=== PATIENT | female | born 1995 | race Caucasian/White ===

== ENCOUNTER 2017-04-12 09:31 | Emergency (ER) | payer MEDICAID ==
[2017-04-12 09:31] VITALS: BMI 29.2
[2017-04-12 09:36] VITALS: BP 135/76; PULSE 91; TEMP 98.9; O2SAT 100
[2017-04-12] MEDS ORDERED: Alum-Mag Hydrox-Simethicone Susp (30 mL) ONE (10:01)
[2017-04-12] MEDS ORDERED: Alum-Mag Hydrox-Simethicone Susp (30 mL) PO ONE (10:02)
[2017-04-12 10:04] VITALS: RESP 19
[2017-04-12 10:34] LABS: BASO # 0.1 K/uL (0.0-0.2); BASO % 0.8 % (0.0-2.0); EOS # 0.2 K/uL (0.0-0.7); EOS % 2.6 % (0.0-4.0); HEMOGLOBIN 12.5 g/dL (12.0-16.0); LYMPH # 2.4 K/uL (1.0-4.3); LYMPH % 38.4 % (20.0-40.0); MEAN CORPUSCULAR HGB CONC 33.4 g/dL (33.0-37.0); MEAN PLATELET VOLUME 9.4 fl (7.2-11.7); MONO # 0.5 K/uL (0.0-0.8); MONO % 7.6 % (0.0-10.0); NEUT # 3.2 K/uL (1.8-7.0); NEUT % 50.6 % (50.0-75.0); NRBC % 0.1 % (0.0-0.0); RBC 4.63 Mil/uL (3.80-5.20); RED CELL DISTRIBUTION WIDTH 13.9 % (11.5-14.5); WHITE BLOOD COUNT 6.4 K/uL (4.8-10.8)
[2017-04-12 10:42] LABS: SQUAMOUS EPITHIAL 3 /hpf (0-5); URINE BILIRUBIN NEGATIVE (NEGATIVE); URINE BLOOD LARGE (NEGATIVE); URINE CLARITY SLIGHTY-CLOUDY (Clear); URINE COLOR YELLOW (YELLOW); URINE GLUCOSE (UA) NEG (Normal); URINE LEUKOCYTE ESTERASE NEG Leu/uL (Negative); URINE NITRATE NEGATIVE (NEGATIVE); URINE PROTEIN NEGATIVE (NEGATIVE); URINE UROBILINOGEN 0.2-1.0 mg/dL (0.2-1.0)
--- NOTE | 2017-04-12 10:49 | ED PDOC ---
HPI: Abdomen Time Seen by Provider: 04/12/17 09:50 Chief Complaint (Nursing): Abdominal Pain Chief Complaint (Provider): abdominal pain History Per: Patient History/Exam Limitations: no limitations Onset/Duration Of Symptoms: Days (2 wks), Intermittent Episodes, Gradual Outside of [place] travel?: No Current Symptoms Are (Timing): Intermittent Episodes Context: Food Severity: Mild Location Of Pain/Discomfort: Epigastric, Periumbilical Quality Of Discomfort: Aching, Cramping Associated Symptoms: Constipation. denies: Nausea, Vomiting, Diarrhea, Loss Of Appetite, Back Pain, Urinary Symptoms Exacerbating Factors: None Alleviating Factors: None Last Bowel Movement: Days Ago (2) Additional Complaint(s): 21yo female c/o intermittent central abdominal pain ongoing for about 2 weeks. Symptoms associated with mild constipation and change in bowel habits. Denies melena, bloody stools, fever, vomiting or weight loss. LMP ended about a week ago. Past Medical History Reviewed: Historical Data, Nursing Documentation, Vital Signs Vital Signs: Last Vital Signs Temp 98.9 F 04/12/17 09:53 Pulse 91 H 04/12/17 09:53 Resp 19 04/12/17 09:53 BP 135/76 04/12/17 09:53 Pulse Ox 100 04/12/17 12:42 - Medical History PMH: Anemia, Bronchitis, Pneumonia Denies: HIV, Chronic Kidney Disease - Family History Family History: States: Unknown Family Hx - Living Arrangements Living Arrangements: With Family - Social History Current smoker - smoking cessation education provided: No - Home Medications Home Medications: Ambulatory Orders Medication Instructions Recorded Docusate Sodium [Dulcolax Stool 100 mg PO BID PRN #20 capsule 04/12/17 Softener] Ranitidine HCl [Zantac] 150 mg PO BID #20 tablet 04/12/17 - Allergies Allergies/Adverse Reactions: Allergies Allergy/AdvReac Type Severity Reaction Status Date / Time No Known Allergies Allergy Verified 05/27/15 19:29 Review of Systems ROS Statement: Except As Marked, All Systems Reviewed And Found Negative Constitutional: Negative for: Fever, Chills Cardiovascular: Negative for: Chest Pain, Palpitations Respiratory: Negative for: Cough, Shortness of Breath Gastrointestinal: Positive for: Abdominal Pain, Constipation. Negative for: Nausea, Vomiting, Diarrhea, Melena, Hematochezia, Hematemesis, Rectal Pain Genitourinary Female: Negative for: Dysuria, Frequency Musculoskeletal: Negative for: Neck Pain, Back Pain, Leg Pain Skin: Negative for: Rash, Lesions, Jaundice Neurological: Negative for: Weakness, Numbness, Headache, Dizziness Psych: Negative for: Anxiety, Depression Physical Exam - Physical Exam Appears: Positive for: Well, Non-toxic, No Acute Distress Skin: Positive for: Normal Color, Warm, DRY Eye Exam: Positive for: EOMI, Normal appearance, PERRL ENT: Positive for: Normal ENT Inspection Neck: Positive for: Normal, Painless ROM Cardiovascular/Chest: Positive for: Regular Rate, Rhythm Respiratory: Positive for: CNT, Normal Breath Sounds Gastrointestinal/Abdominal: Positive for: Bowel Sounds, Soft, Tenderness ( minimal central abd tenderness). Negative for: Guarding, Rebound Back: Positive for: Normal Inspection Extremity: Positive for: Normal ROM Neurologic/Psych: Positive for: Alert, Oriented - Laboratory Results Result Diagrams: 04/12/17 10:28 04/12/17 10:28 Urine POC: Negative Urine dip results: Positive for: Blood - ECG O2 Sat by Pulse Oximetry: 100 Pulse Ox Interpretation: Normal Medical Decision Making Medical Decision Making: workup initiated for central abd pain Upreg negative Labs ordered, maalox and bentyl ordered US abdomen ordered Reevaluation 1237 Patient is feeling better in ER, abdomen is soft and non tender and patient would like to go home. Patient will be discharged home with a trial of cathartic and instructions to follow up with gastroenterology. Blood work also reviewed and found remarkable. Scribe Attestation Documented by Preethi Rodríguez acting as a scribe for Pavan Boyer MD. Provider Attestation All medical record entries made by the Scribe were at my direction and personally dictated by me. I have reviewed the chart and agree that the record accurately reflects my personal performance of the history, physical exam, medical decision making, and the department course for this patient. I have also personally directed, reviewed, and agree with the discharge instructions and disposition. Disposition - Clinical Impression Clinical Impression: Abdominal pain - Patient ED Disposition Is Patient to be Admitted: No Counseled Patient/Family Regarding: Studies Performed, Diagnosis, Need For Followup, Rx Given - Disposition Referrals: Cooper Carr MD [Staff Provider] - Disposition: Routine/Home Disposition Time: 12:35 Condition: STABLE Additional Instructions: See GI specialist in next 5-10 days for further testing. Return to ER for any worse or new symptoms. Prescriptions: Docusate Sodium [Dulcolax Stool Softener] 100 mg PO BID PRN #20 capsule PRN Reason: Constipation Ranitidine HCl [Zantac] 150 mg PO BID #20 tablet Instructions: Abdominal Pain (ED) Forms: [employer] (Kenyan)
[2017-04-12 10:51] LABS: ALB/GLOB RATIO 1.6 (1.0-2.1); ALBUMIN 4.8 g/dL (3.5-5.0); ALT/SGPT 28 U/L (9-52); AST/SGOT 29 U/L (14-36); BLOOD UREA NITROGEN 11 mg/dl (7-17); CALCIUM 9.6 mg/dL (8.4-10.2); GFR AFRICAN-AMERICAN > 60; GFR NON-AFRICAN AMERICAN > 60; LIPASE 26 U/L (23-300)
--- NOTE | 2017-04-12 11:10 | US ---
HISTORY: Mid abdominal pain COMPARISON: None. TECHNIQUE: Grayscale imaging was performed. FINDINGS: LIVER: Measures 14.9 cm. Normal echogenicity of the liver parenchyma. No mass. No intrahepatic bile duct dilatation. GALLBLADDER: Unremarkable. No gallstones. COMMON BILE DUCT: Measures 4.2 mm. No stones. No dilatation. PANCREAS: Unremarkable as visualized. No mass. No ductal dilatation. RIGHT KIDNEY: Measures 10.2cm. Normal echogenicity. No calculus, mass, or hydronephrosis. LEFT KIDNEY: Measures 12.3cm. Normal echogenicity. No calculus, mass, or hydronephrosis. SPLEEN: Normal in size and contour. No mass. AORTA: No aneurysmal dilatation. IVC: Unremarkable. OTHER FINDINGS: None. IMPRESSION: Normal examination.
== END 2017-04-12 12:49 | disposition home or self-care (01) ==
LOC: H.ER 09:31
DX: K59.00 Constipation, unspecified (principal)

== ENCOUNTER 2017-11-12 09:27 | Emergency (ER) | payer MEDICAID ==
[2017-11-12 09:30] VITALS: BMI 28.3
[2017-11-12 09:32] VITALS: TEMP 98.2
--- NOTE | 2017-11-12 09:46 | ED PDOC ---
HPI: General Adult Time Seen by Provider: 11/12/17 09:36 Chief Complaint (Nursing): Cough, Cold, Congestion Chief Complaint (Provider): Nasal Congestion History Per: Patient History/Exam Limitations: no limitations Onset/Duration Of Symptoms: Days (2) Current Symptoms Are (Timing): Still Present Additional Complaint(s): Pt. with nasal congestion, body aches, sore throat. No weakness, dyspnea, headaches, dizziness. No leg pain, abd pain, dysuria. No back pain. Tolerates po. No dizziness. Ambulated with no issues. Fever yesterday, not today. Took aleeve at night. Past Medical History Reviewed: Nursing Documentation, Vital Signs Vital Signs: Last Vital Signs Temp 98.2 F 11/12/17 09:30 Pulse 83 11/12/17 09:30 Resp 20 11/12/17 09:30 BP 127/88 11/12/17 09:30 Pulse Ox 99 11/12/17 09:30 - Medical History PMH: Bronchitis Denies: HIV, Chronic Kidney Disease - Surgical History Surgical History: No Surg Hx - Family History Family History: States: Unknown Family Hx - Living Arrangements Living Arrangements: With Family - Social History Current smoker - smoking cessation education provided: No Alcohol: None Drugs: Denies - Home Medications Home Medications: Ambulatory Orders Medication Instructions Recorded Docusate Sodium [Dulcolax Stool 100 mg PO BID PRN #20 capsule 04/12/17 Softener] Ranitidine HCl [Zantac] 150 mg PO BID #20 tablet 04/12/17 Ibuprofen [Motrin] 600 mg PO TID 7 Days tab 11/12/17 - Allergies Allergies/Adverse Reactions: Allergies Allergy/AdvReac Type Severity Reaction Status Date / Time No Known Allergies Allergy Verified 05/27/15 19:29 Review of Systems Constitutional: Positive for: Fever. Negative for: Weakness Eyes: Negative for: Vision Change ENT: Positive for: Nose Pain, Nose Discharge, Nose Congestion, Throat Pain. Negative for: Mouth Pain Cardiovascular: Negative for: Chest Pain Respiratory: Negative for: Cough, Shortness of Breath, Sputum Gastrointestinal: Negative for: Vomiting, Abdominal Pain, Diarrhea Genitourinary Female: Negative for: Dysuria Musculoskeletal: Negative for: Neck Pain, Shoulder Pain, Arm Pain Skin: Negative for: Rash Neurological: Negative for: Weakness Physical Exam - Reviewed Nursing Documentation Reviewed: Yes Vital Signs Reviewed: Yes - Physical Exam Appears: Positive for: Well, Non-toxic, No Acute Distress Head Exam: Positive for: ATRAUMATIC, NORMAL INSPECTION, NORMOCEPHALIC Eye Exam: Positive for: EOMI, Normal appearance, PERRL ENT: Positive for: Nasal Congestion Neck: Positive for: Normal, Painless ROM, Supple Cardiovascular/Chest: Positive for: Regular Rate, Rhythm Respiratory: Positive for: CNT, Normal Breath Sounds Gastrointestinal/Abdominal: Positive for: Normal Exam, Bowel Sounds, Soft. Negative for: Tenderness Back: Positive for: Normal Inspection. Negative for: L CVA Tenderness, R CVA Tenderness Extremity: Positive for: Normal ROM. Negative for: Tenderness Neurologic/Psych: Positive for: Alert, Oriented - ECG O2 Sat by Pulse Oximetry: 99 Pulse Ox Interpretation: Normal - Progress ED Course And Treament: 947: Stable. AAOx3. Pain free. Tolerated po . Fu with pcp. Disposition - Clinical Impression Clinical Impression: URI (upper respiratory infection) Counseled Patient/Family Regarding: Diagnosis, Need For Followup, Rx Given - Disposition Referrals: [facility] [Outside] - 11/13/17 Disposition: Routine/Home Disposition Time: 09:48 Condition: STABLE Additional Instructions: Return if not better in 3 days. Prescriptions: Ibuprofen [Motrin] 600 mg PO TID 7 Days tab Forms: [employer] (Upper Sorbian), [facility] ED School/Work Excuse
[2017-11-12 10:25] VITALS: BP 128/70; PULSE 78; RESP 16; O2SAT 98
== END 2017-11-12 10:25 | disposition home or self-care (01) ==
LOC: H.ER 09:27
DX: J06.9 Acute upper respiratory infection, unspecified (principal)

== ENCOUNTER 2018-01-12 23:08 | Emergency (ER) | payer MEDICAID ==
[2018-01-12 23:09] VITALS: BMI 28.3
[2018-01-12 23:20] VITALS: RESP 18; TEMP 98.5
[2018-01-13] MEDS ORDERED: Sodium Chloride 0.9% 1,000 ML IV SCH (01:30)
[2018-01-13 02:10] LABS: BASO # 0.1 K/uL (0.0-0.2); BASO % 0.7 % (0.0-2.0); EOS % 0.6 % (0.0-4.0); HEMOGLOBIN 12.2 g/dL (12.0-16.0); LYMPH # 2.2 K/uL (1.0-4.3); LYMPH % 30.6 % (20.0-40.0); MEAN CELL VOLUME 81.6 fl (81.0-99.0); MEAN CORPUSCULAR HEMOGLOBIN 26.2 pg (27.0-31.0); MEAN CORPUSCULAR HGB CONC 32.1 g/dL (33.0-37.0); MEAN PLATELET VOLUME 9.7 fl (7.2-11.7); MONO # 0.5 K/uL (0.0-0.8); MONO % 6.5 % (0.0-10.0); NEUT # 4.5 K/uL (1.8-7.0); NEUT % 61.6 % (50.0-75.0); NRBC % 0.2 % (0.0-0.0); RBC 4.67 Mil/uL (3.80-5.20); RED CELL DISTRIBUTION WIDTH 13.8 % (11.5-14.5); WHITE BLOOD COUNT 7.3 K/uL (4.8-10.8)
[2018-01-13 02:17] LABS: ALB/GLOB RATIO 1.1 (1.0-2.1); ALBUMIN 4.5 g/dL (3.5-5.0); ALT/SGPT 25 U/L (9-52); AST/SGOT 26 U/L (14-36); BLOOD UREA NITROGEN 6 mg/dl (7-17); CALCIUM 11.5 mg/dL (8.4-10.2); GFR AFRICAN-AMERICAN > 60; GFR NON-AFRICAN AMERICAN > 60
--- NOTE | 2018-01-13 02:59 | ED PDOC ---
History of Present Illness History of Present Illness: 22 year old female presents to ED with complaints of cough x3 days. (+) nausea, vomiting, and dizziness. Otherwise: (-) fever, (-) chest pain, (-) headache, ( -) SOB, (-) abdominal pain, (-) decreased oral intake, (-) decreased urine output, (-) rash, (-) urinary symptoms, (-) travel. Of note, patient states that she has had pneumonia in the past. PCP: [facility] HPI: Influenza Time Seen by Provider: 01/13/18 00:32 Chief Complaint: Cough, Cold, Congestion Chief Complaint (Provider): Cough History Per: Patient Exam Limitations: no limitations Onset/Duration Of Symptoms: Days (x3) Symptoms include: vomiting. denies: fever Past Medical History Reviewed: Historical Data, Nursing Documentation, Vital Signs Vital Signs: Last Vital Signs Temp 98.5 F 01/12/18 23:18 Pulse 81 01/12/18 23:18 Resp 18 01/12/18 23:18 BP 143/86 01/12/18 23:18 Pulse Ox 99 01/12/18 23:18 - Medical History PMH: Anemia, Bronchitis, Pneumonia Denies: HIV, Chronic Kidney Disease - Surgical History Surgical History: No Surg Hx - Family History Family History: States: Unknown Family Hx - Living Arrangements Living Arrangements: With Family - Home Medications Home Medications: Ambulatory Orders Medication Instructions Recorded Docusate Sodium [Dulcolax Stool 100 mg PO BID PRN #20 capsule 04/12/17 Softener] Ranitidine HCl [Zantac] 150 mg PO BID #20 tablet 04/12/17 Ibuprofen [Motrin] 600 mg PO TID 7 Days tab 11/12/17 Ondansetron ODT [Zofran ODT] 4 mg PO DAILY PRN #20 odt 01/13/18 - Allergies Allergies/Adverse Reactions: Allergies Allergy/AdvReac Type Severity Reaction Status Date / Time No Known Allergies Allergy Verified 05/27/15 19:29 Review of Systems ROS Statement: Except As Marked, All Systems Reviewed And Found Negative Constitutional: Negative for: Fever Respiratory: Positive for: Cough Gastrointestinal: Positive for: Nausea, Vomiting Neurological: Positive for: Dizziness Physical Exam - Reviewed Nursing Documentation Reviewed: Yes Vital Signs Reviewed: Yes - Physical Exam Comments: GENERAL APPEARANCE: Patient is awake, alert, not toxic appearing, in no acute distress. SKIN: Warm, dry; (-) cyanosis; (-) petechiae, (-) other rash except. EYES: (-) conjunctival pallor, (-) icterus. ENMT: TMs (-) erythema. Pharynx: (-) tonsillar erythema, (-) tonsillar exudate. Airway patent, (-) stridor. Mucous membranes moist. NECK: (-) stiffness, (-) meningismus, (-) lymphadenopathy. CHEST AND RESPIRATORY: (-) retractions, (-) rales, (-) rhonchi, (-) wheezes; breath sounds equal bilaterally. HEART AND CARDIOVASCULAR: (-) irregularity; (-) murmur, (-) gallop. ABDOMEN AND GI: Soft; (-) tenderness; (-) distention, (-) guarding; (-) palpable mass. EXTREMITIES: (-) deformity; distal pulses are present. NEURO AND PSYCH: Mental status as above; interacts appropriately for age. Strength and tone good. Medical Decision Making Medical Decision Making: Plan : - CXR - EKG - Labs - Uhcg EKG : NSR at 61 bpm, no acute ST changes, as read by [facility] CXR : NAD, as read by [facility] cg: (-) On re-evaluation, patient reports improvement of symptoms, denies any nausea, SOB, CP, fever, c/o mild dizziness. On exam, patient remains AAOx3, in no acute distress. Lungs clear to auscultation, cardiac RRR, repeat neuro exam shows no focal findings, gait is steady. Patient is tolerating po fluids. Lab results reviewed : wbc 7.3, hgb 12.2, cmp wnl Diagnostic results d/w the patient in great detail. Diagnosis of cough, viral illness d/w the patient. Based on history, exam and diagnostic results, plan will be for outpatient follow up. Patient instructed to follow-up with pmd in 1-2 days without fail. Advised to take medication as prescribed. Return to the emergency room at any time for any new or worsening symptoms. Patient states she fully agrees with and understands discharge instructions. States that she agrees with the plan and disposition. Verbalized and repeated discharge instructions and plan. I have given the patient opportunity to ask any additional questions. Scribe Attestation: Documented by Mirian Maciel acting as a scribe for Linda Villasenor PA-C. Scribe Attestation: All medical record entries made by the Scribe were at my direction and personally dictated by me. I have reviewed the chart and agree that the record accurately reflects my personal performance of the history, physical exam, medical decision making, and the department course for this patient. I have also personally directed, reviewed, and agree with the discharge instructions and disposition. - Laboratory Results Result Diagrams: 01/13/18 02:02 01/13/18 02:02 - ECG O2 Sat by Pulse Oximetry: 99 (RA) Pulse Ox Interpretation: Normal Disposition - Clinical Impression Clinical Impression: Cough, Viral illness - Patient ED Disposition Is Patient to be Admitted: No Counseled Patient/Family Regarding: Studies Performed, Diagnosis, Need For Followup, Rx Given - Disposition Disposition: Routine/Home Disposition Time: 03:00 Condition: STABLE Additional Instructions: Thank you for letting us take care of you today. You were treated for cough, viral illness. The emergency medical care you received today was directed at your acute symptoms. If you were prescribed any medication, please fill it and take as directed. It may take several days for your symptoms to resolve. Return to the Emergency Department if your symptoms worsen, do not improve, or if you have any other problems. Please contact your doctor in 2 days for re-evaluation and follow up. Bring any paperwork you were given at discharge with you along with any medications you are taking to your follow up visit. Our treatment cannot replace ongoing medical care by a primary care provider (PCP) outside of the emergency department. Thank you for allowing the [facility] team to be part of your care today. If you had an X-Ray : A Radiologist will review the ED reading if any change in treatment is needed we will contact you. Prescriptions: Ondansetron ODT [Zofran ODT] 4 mg PO DAILY PRN #20 odt PRN Reason: Nausea/Vomiting Instructions: Cough, Adult (DC) Forms: [employer] (Ukrainian), [facility] ED School/Work Excuse
[2018-01-13 03:12] VITALS: BP 130/76; PULSE 60
[2018-01-13 03:54] VITALS: O2SAT 99
--- NOTE | 2018-01-13 10:34 | RAD ---
CHEST RADIOGRAPHS Frontal lateral views the chest have been submitted for interpretation is questioned cough. Comparison is made to the prior chest radiographs dated 11/03/2016. There is no acute infiltrate identified bilaterally. Cardiac size is normal ; the trachea is midline. There is no pulmonary vascular derangement identified. IMPRESSION: No interval acute cardiopulmonary disease appreciable.
--- NOTE | 2018-01-14 11:50 | CARD ---
APPROVED REPORT EKG Measurement Heart [id number] CA [id number] [id number] <Conclusion> Normal sinus rhythm Normal ECG
== END 2018-01-13 03:17 | disposition home or self-care (01) ==
LOC: H.ER 23:08
DX: R05 Cough (principal); B34.9 Viral infection, unspecified

== ENCOUNTER 2018-06-12 07:37 | Emergency (ER) | payer MEDICAID ==
[2018-06-12 07:43] VITALS: RESP 18; TEMP 98; O2SAT 99
[2018-06-12 07:44] VITALS: BMI 29.2
--- NOTE | 2018-06-12 08:09 | ED PDOC ---
HPI: Allergic Reaction Time Seen by Provider: 06/12/18 07:53 Chief Complaint (Nursing): Allergic Reaction Chief Complaint (Provider): Rash History Per: Patient History/Exam Limitations: no limitations Onset/Duration Of Symptoms: Days (x1) Current Symptoms Are (Timing): Still Present Associated Symptoms: Skin Rash, Itching Home/EMS Treatment: Benadryl Additional Complaint(s): Dianne Chicas is a 22 year old female, with no significant past medical history, who presents to the emergency department complaining of an itchy rash onset since yesterday. She took Benadryl last night with mild improvement. Patient reports she recently finished her Bactrim x9-10 days ago for UTI and sore throat with improvement of symptoms. She also reports drinking a new quinton tea Saturday night. Otherwise she denies any new environmental exposures, nausea, vomit, diarrhea, shortness of breath, cough, congestion, abdominal pain , chest pain, fever, chills, numbness, weakness, headache, dizziness, throat swelling or pain. No further medical complaints. PMD: None provided. Past Medical History Reviewed: Historical Data, Nursing Documentation, Vital Signs Vital Signs: Last Vital Signs Temp 98 F 06/12/18 07:42 Pulse 101 H 06/12/18 07:42 Resp 18 06/12/18 07:42 BP 115/75 06/12/18 07:42 Pulse Ox 99 06/12/18 07:42 - Medical History PMH: Anemia, Bronchitis, Pneumonia Denies: HIV, Chronic Kidney Disease - Surgical History Surgical History: No Surg Hx - Family History Family History: States: Unknown Family Hx - Living Arrangements Living Arrangements: With Family - Social History Current smoker - smoking cessation education provided: No Alcohol: None Drugs: Denies - Home Medications Home Medications: Ambulatory Orders Medication Instructions Recorded Docusate Sodium [Dulcolax Stool 100 mg PO BID PRN #20 capsule 04/12/17 Softener] Ranitidine HCl [Zantac] 150 mg PO BID #20 tablet 04/12/17 Ibuprofen [Motrin] 600 mg PO TID 7 Days tab 11/12/17 Ondansetron ODT [Zofran ODT] 4 mg PO DAILY PRN #20 odt 01/13/18 DiphenhydrAMINE [Benadryl] 25 mg PO TID PRN 5 Days cap 06/12/18 predniSONE [predniSONE Tab] 20 mg PO BID 5 Days tab 06/12/18 - Allergies Allergies/Adverse Reactions: Allergies Allergy/AdvReac Type Severity Reaction Status Date / Time No Known Allergies Allergy Verified 05/27/15 19:29 Review of Systems ROS Statement: Except As Marked, All Systems Reviewed And Found Negative Constitutional: Negative for: Fever, Chills ENT: Negative for: Nose Congestion, Throat Swelling Cardiovascular: Negative for: Chest Pain Respiratory: Negative for: Cough, Shortness of Breath Gastrointestinal: Negative for: Nausea, Vomiting, Abdominal Pain, Diarrhea Skin: Positive for: Rash (itchy ) Neurological: Negative for: Weakness, Numbness, Headache, Dizziness Physical Exam - Reviewed Nursing Documentation Reviewed: Yes Vital Signs Reviewed: Yes - Physical Exam Appears: Positive for: No Acute Distress Head Exam: Positive for: ATRAUMATIC, NORMAL INSPECTION, NORMOCEPHALIC Skin: Positive for: Warm, Dry, Rash (Urticarial pattern, scattered blanching erythematous patches. No induration, discharge and nontender.) Eye Exam: Positive for: Normal appearance, EOMI, PERRL ENT: Positive for: Normal ENT Inspection Neck: Positive for: Painless ROM, Supple Cardiovascular/Chest: Positive for: Regular Rate, Rhythm. Negative for: Murmur Respiratory: Positive for: Normal Breath Sounds. Negative for: Respiratory Distress Gastrointestinal/Abdominal: Positive for: Soft. Negative for: Tenderness Back: Negative for: L CVA Tenderness, R CVA Tenderness Extremity: Positive for: Normal ROM (upper and lower extremities). Negative for : Tenderness, Pedal Edema, Deformity, Swelling Neurologic/Psych: Positive for: Alert, Oriented. Negative for: Motor/Sensory Deficits - ECG O2 Sat by Pulse Oximetry: 99 (RA) Pulse Ox Interpretation: Normal - Progress ED Course And Treament: 851: Stable. AAOx3. Pain free. Tolerated PO. FU with pcp. Disposition - Clinical Impression Clinical Impression: Allergic reaction - Patient ED Disposition Is Patient to be Admitted: No Counseled Patient/Family Regarding: Diagnosis, Need For Followup, Rx Given - Disposition Referrals: [facility] [Outside] - 06/13/18 Disposition: Routine/Home Disposition Time: 08:52 Condition: STABLE Additional Instructions: Stop bactrim and quinton tea as they may be the cause of your allergic reaction. Return if not better in 3 days. Prescriptions: DiphenhydrAMINE [Benadryl] 25 mg PO TID PRN 5 Days cap PRN Reason: Itching / Pruritus predniSONE [predniSONE Tab] 20 mg PO BID 5 Days tab Instructions: Dionne Forms: [employer] (Icelandic) Medical Decision Making Medical Decision Making: Time: 07:53 Initial Impression: Rash Initial Plan: --Benadryl 25 mg PO --prednisone tab 60 mg PO --reevaluation ----- Scribe Attestation: Documented by Nik Cunningham, acting as a scribe for Clarke Holden MD. Provider Scribe Attestation: All medical record entries made by the Scribe were at my direction and personally dictated by me. I have reviewed the chart and agree that the record accurately reflects my personal performance of the history, physical exam, medical decision making, and the department course for this patient. I have also personally directed, reviewed, and agree with the discharge instructions and disposition.
[2018-06-12 09:30] VITALS: BP 112/76; PULSE 90
== END 2018-06-12 09:27 | disposition home or self-care (01) ==
LOC: H.ER 07:37
DX: T78.40XA Allergy, unspecified, initial encounter (principal)